=== PATIENT | male | born 1945 | race Caucasian/White ===

== ENCOUNTER 2016-12-10 19:43 | Emergency (ER) | payer MEDICARE, MEDICAID ==
[~2016-12-10] VITALS: Ht 175.3 cm; Wt 100.0 kg
[~2016-12-10 19:43] MED LIST: ASPI81TA82 PO; ATOR80TA PO; CLOP75 PO; GABA600T PO; KEPP1000 PO; LASI20TA PO; METO100T9 PO; NORT1CAP53 PO; SYMB80AE INH; TAMS0.4C4 PO; ZOFR4TAB3 SL
[2016-12-10 19:45] VITALS: BP 162/73; PULSE 82; RESP 16; TEMP 97.4; O2SAT 96
--- NOTE | 2016-12-10 21:29 | PD ---
HPI Chief Complaint: ENT Complaint Time Seen by Provider: 21:25 Travel History International Travel<30 days: No Contact w/Intl Traveler<30days: No Traveled to known affect area: No History of Present Illness HPI 71-year-old male that presents to the ED for evaluation of a sore throat and neck discomfort as well as cough. Per patient she's had this for 3 days. He has a remote history of smoking. Per patient he went to the hospital in per patient he was told that he only had some "natural" problem and was told that he needed to follow up. Per patient he comes here because he is still not feeling better. Per patient he has darkening of the tongue. He denies any chest pain or shortness of breath. States that the cough is productive. Per patient he has sore throat when he swallows with able to swallow. Per patient he has a taste of crayons on his mind when he eats. He denies any abdominal pain. No bowel movement issues. No urinary issues. No fevers chills or sweats. [place] He has an allergy to iodine. He states that his discomfort 7 out of 10. More with swallowing. Has no PCP in the area. PFSH Past Medical History Hx Anticoagulant Therapy: Yes AAA: Yes (STATES UNKNOWN) Anxiety: No Cancer: No Cardiac Catheterization: Yes (STENTS X2) Cardiovascular Problems: Yes (STENT) High Cholesterol: Yes Coronary Artery Disease: Yes Endocrine: No Gastrointestinal Disorders: No GERD: Yes Genitourinary: No Hypertension: Yes Immune Disorder: No Implanted Vascular Access Dvce: No Psychiatric: No Reproductive: No Respiratory: No Myocardial Infarction: Yes (x2) Seizures: Yes Triglycerides - High: Yes Past Surgical History Cardiac Surgery: Yes ([place], stent -2003) Other Surgery: Yes Social History Alcohol Use: No Tobacco Use: No Substance Use: No Allergies-Medications (Allergen,Severity, Reaction): Coded Allergies: Iodine (Verified Allergy, Severe, Swelling, 02/26/16) Reported Meds & Prescriptions Reported Meds & Active Scripts Active Azithromycin 250 Mg Tab 250 Mg PO DIRECTED Take 2 tabs (500 mg) on day 1 then 1 tab daily x 4 days. Nystatin Liq 100,000 unit/ml Susp 5 Ml SWISH-SWAL QID 10 Days Magic Mouthwash Adult Liq (Multi-Ingredient Mouthwash/Gargle) 120 Ml Susp 5 Ml SWISH-SWAL ACHS Each 5 mL contains: Nystatin 200,000 units, Diphenhydramine 4.25 mg, Viscous Lidocaine 10 mg, Arteaga syrup 0.8 mL Zofran ODT (Ondansetron HCl) 4 Mg Tab 4 Mg SL Q6HR PRN FOR NAUSEA/VOMITING Reported Atorvastatin 80 mg (Atorvastatin Calcium) 80 Mg Tab 80 Mg PO HS Symbicort (Budesonide/Formoterol Fumarate) 80 Mcg/4.5 Mcg Aer 2 Puff INH BID * SHAKE WELL BEFORE USE * Pamelor 25 mg (Nortriptyline HCl) 25 Mg Cap 25 Mg PO HS Tamsulosin 0.4 mg (Tamsulosin HCl) 0.4 Mg Cap 0.4 Mg PO DAILY Metoprolol Succinate ER 100 mg (Metoprolol Succinate) 100 Mg Tab 100 Mg PO DAILY Gabapentin 600 Mg Tab 600 Mg PO TID Aspir-81 (Aspirin) 81 Mg Tab 81 Mg PO DAILY Plavix (Clopidogrel Bisulfate) 75 Mg Tab 75 Mg PO DAILY Lasix (Furosemide) 20 Mg Tab 1-2 Tab PO DAILY PRN 30 Days Keppra (Levetiracetam) 1,000 Mg Tab 1,000 Mg PO TID Review of Systems General / Constitutional: No: Fever, Chills, Weight Gain, Weight Loss, Other Eyes: No: Diploplia, Blurred Vision, Photophobia, Drainage, Redness, Foreign Body Sensation, Pain, Tearing, Blind Spots, Visual changes, Blindness, Other HENT: Positive: Sore Throat, Rhinitis, Congestion, No: Headaches, Vertigo, Lightheadedness, Rhinorrhea, Nosebleed, Neck Stiffness, Neck Pain, Masses, Gingival Bleeding, Dental Difficulties, Ear Discharge, Earache, Other Cardiovascular: No: Chest Pain or Discomfort, Palpitations, Irregular Rhythm, Tachycardia, Diaphoresis, Syncope, Dyspnea on exertion, Varicosities, Edema, Cyanosis, Varicosities, Phlebitis, Claudication, Other Respiratory: Positive: Cough, No: Shortness of Breath, Wheezing, Sneezing, Orthopnea, Hemoptysis, Stridor, Night Sweats, Pleuritic Pain, Other Gastrointestinal: No: Nausea, Vomiting, Diarrhea, Abdominal Pain, Hematemesis, Hematochezia, Constipation, Changes in Bowel Habits, Indigestion, Dysphagia, Loss of Appetite, Other Genitourinary: No: Urgency, Frequency, Dysuria, Nocturia, Hematuria, Decreased Urinary Output, Oliguria, Hesitancy, Dribbling, Incontinence, Pelvic Pain, Flank Pain, Dyspareunia, Discharge, Dysmenorrhea, Menorrhagia, Metorrhagia, Vaginal Bleeding, Other Musculoskeletal: No: Myalgias, Arthralgias, Limited ROM, Weakness, Cramping, Edema, Pain, Atrophy, Other Skin: No Rash, No Itching, No Dryness, No Lumps, No Hives, No Change in Pigmentation, No Change in nails, No Alopecia, No Lesions, No Breast Lumps, No Breast Tenderness, No Breast Swelling, No Other Neurologic: No: Weakness, Dizziness, Syncope, Focal Abnormalities, Coordination Problem, Tremor, Ataxia, Headache, Change in Mentation, Slurred Speech, Paresthesia, Incontinence, Seizures, Sensory Disturbance, Other Psychiatric: No: Anxiety, Depression, Suicidal Ideations, Disorder of Thought, Mood Disorder, Substance Abuse, Homicidal Ideation, Other Endocrine: No: Heat Intolerance, Cold Intolerance, Polyuria, Polydipsia, Other Hematologic/Lymphatic: No: Easy Bruising, Lymph Node Enlargement, Other Physical Exam Narrative GENERAL: Well-nourished, well-developed patient in no apparent distress. SKIN: Warm and dry. HEAD: Atraumatic. Normocephalic. EYES: Pupils equal and round reactive to light and accommodation. No scleral icterus. No injection or drainage. ENT: No nasal bleeding or discharge. Mucous membranes pink and moist. TMs are clear with no sign of infection or perforation. No mastoid tenderness. Ear canals are intact bilaterally. Patient has left-sided anterior cervical lymphadenopathy. Nostril mucosa is red and moist with clear mucus noted. No sinus tenderness to palpation noted. Tonsils are not enlarged or swollen. No ulvua Deviation. Tongue is midline. Patient does have darkening of the tongue which appears to be brownish and with whitish film. Nontender. NECK: Trachea midline. No JVD. No meningeal signs noted CARDIOVASCULAR: Regular rate and rhythm. RESPIRATORY: No accessory muscle use. Clear to auscultation. Breath sounds equal bilaterally. GASTROINTESTINAL: Abdomen soft, non-tender, nondistended. Hepatic and splenic margins not palpable. MUSCULOSKELETAL: Extremities without clubbing, cyanosis, or edema. No obvious deformities. NEUROLOGICAL: Awake and alert. No obvious cranial nerve deficits. Motor grossly within normal limits. Five out of 5 muscle strength in the arms and legs. Normal speech. PSYCHIATRIC: Appropriate mood and affect; insight and judgment normal. Data Data Last Documented VS Vital Signs Date Time Temp Pulse Resp B/P Pulse Ox O2 Delivery O2 Flow Rate FiO2 12/10/16 19:45 97.4 82 16 162/73 96 Room Air Orders Group A Rapid Strep Screen (12/10/16 21:14) Chest, Single Ap (12/10/16 ) Strep Culture (Group A) (12/10/16 21:30) MDM Medical Decision Making Medical Screen Exam Complete: Yes Emergency Medical Condition: Yes Medical Record Reviewed: Yes Interpretation(s) strep negative CXR negative Differential Diagnosis Sore throat versus tonsillitis versus pharyngitis versus pneumonia Narrative Course 71-year-old male that presents to the ED for evaluation of sore throat. Patient was properly examined and was found to have signs and symptoms consistent with appears to be infection of the throat. Patient has some brownish discoloration of the tongue as well as appears to be white film. Possible oral candidiasis noted. At this time I recommend chest x-ray to rule out pneumonia as well as strep throat this. Patient is agreeable with this. Strep test as well as chest x-ray was negative for acute disease. Patient was reassured. From history and physical this appears to be likely fungal infection of the throat as well as possible bronchitis. At this time I will treat patient with azithromycin to cover for bronchitis and pneumonia bacterial infection, and nystatin liquid as well as magic mouthwash. A she will be given information for ENT follow-up as I think that he will benefit from this. He understands reasons to come back. See ED for any worsening symptoms. Case was discussed in my attending Dr Cedillo who agrees with plan. Diagnosis Primary Impression: Oral candidiasis Referrals: Loco Miles MD Patient Instructions: General Instructions Additional Instructions: Motrin and Tylenol for pain and fever. You can use [id number] antihistamine as well as well as Mucinex as needed for runny nose and congestion. Cough drops for cough as needed. Drink plenty of fluids. Follow-up with PCP. See ED for worsening symptoms. Med/Other Pt SpecificInfo: Prescription(s) given Scripts Azithromycin 250 Mg [id number] Mg PO DIRECTED #6 TAB Take 2 tabs (500 mg) on day 1 then 1 tab daily x 4 days. Prov:Pro Cedillo MD 12/10/16 Nystatin Liq 100,000 unit/ml Susp5 Ml SWISH-SWAL QID 10 Days Ref 0 Prov:Pro Cedillo MD 12/10/16 Ktvdiltx-Ingdgntymcofzla-Ghcederfu Liq (Magic Mouthwash Adult Liq)120 Ml Susp5 Ml SWISH-SWAL ACHS #120 ML Each 5 mL contains: Nystatin 200,000 units, Diphenhydramine 4.25 mg, Viscous Lidocaine 10 mg, Arteaga syrup 0.8 mL Prov:Pro Cedillo MD 12/10/16 Disposition: 01 DISCHARGE HOME Condition: Stable Ronny Camacho Dec 10, 2016 21:29
[2016-12-10] MEDS ORDERED: AZIT250T3 PO (22:20)
[2016-12-10] MEDS ORDERED: MAGICADU2 SWISH-SWAL (22:20)
[2016-12-10] MEDS ORDERED: NYST1000 SWISH-SWAL (22:20)
--- NOTE | 2016-12-10 22:23 | RADRPT ---
EXAM DATE/TIME: 12/10/2016 21:25 [facility] COMPARISON: CHEST SINGLE AP, February 26, 2016, 19:01. INDICATIONS : Cough MEDICAL HISTORY : Chronic obstructive pulmonary disease. SURGICAL HISTORY : Carotid stent. ENCOUNTER: Initial ACUITY: 1 week PAIN SCORE: 0/10 LOCATION: Bilateral chest FINDINGS: A single view of the chest demonstrates the lungs to be symmetrically aerated without evidence of mas s, infiltrate or effusion. The cardiomediastinal contours are unremarkable. Osseous structures are intact. CONCLUSION: No acute disease. No significant change has occurred. Scott Tineo MD on December 10, 2016 at 22:21 Board Certified Radiologist. This report was verified electronically.
[2016-12-10] MEDS ORDERED: PAME25CA PO (22:37)
[2016-12-10] MEDS ORDERED: KEPP10002 PO (22:37)
[2016-12-10] MEDS ORDERED: GABA600T PO (22:37)
[2016-12-10] MEDS ORDERED: ASPI81CH37 CHEW (22:37)
[2016-12-10] MEDS ORDERED: PLAV75TA29 PO (22:37)
[2016-12-10] MEDS ORDERED: FURO1TAB62 PO (22:37)
[2016-12-10] MEDS ORDERED: ATOR1TAB18 PO (22:37)
[2016-12-10] MEDS ORDERED: SYMB80AE INH (22:37)
[2016-12-10] MEDS ORDERED: METO100T9 PO (22:37)
[2016-12-10 22:40] VITALS: BP 134/72
== END 2016-12-10 22:50 | disposition home or self-care (01) ==
LOC: NEPE 19:43
DX: B37.0 Candidal stomatitis (principal); R05 Cough; Z87.891 Personal history of nicotine dependence
CPT/HCPCS: 71010; 87081; 87880; 99283